=== PATIENT | male | born 1975 | race African-American/Black ===

== ENCOUNTER 2017-02-09 03:11 | Observation (INO) | payer BC, OTHER ==
--- NOTE | ~2017-02-09 | HP ---
History And Physical [place] [address] [facility] [place]. [address] NAME: JEWELS MEDEL SR : 73 STATUS : ADM Jesse PAT#: [id number] AGE: 41 ADM/REG DATE : 02/09/17 MR#: [id number] REPORT SERV DATE: 02/09/17 DICTATED BY: COBY UREÑA DATE: 02/09/17 REPORT STATUS : Draft TRANSCRIBED BY: MODMoi DATE: 02/09/17 DATE OF ADMISSION: 02/09/2017 CHIEF COMPLAINT: Chest pain. HISTORY OF PRESENT ILLNESS: This is a 41-year-old male with no prior history of coronary artery disease, who states onset of chest pain at around 9 p.m. while at rest last evening. He states that it is in the left chest and midsternal, 10/10 in severity, described as "squeezing and sharp." He took an 81 mg aspirin and checked his blood pressure which was okay. The chest pain persisted, so he came to our emergency department for further evaluation around 1 o'clock in the morning. He was given some IV fentanyl as well as aspirin and IV Zofran and admitted to our chest pain observation unit. He states that IV fentanyl seemed to help the chest pain, but then he has had briefer sharp pains through the night. While examining him, he is observed to have some of these chest pains that last seconds to a few minutes. There was no response to sublingual nitroglycerin given at bedside. The patient has a history of several cardiac workups in the past including a nuclear stress test and echocardiogram here at [facility] last April. Vasodilator nuclear stress test was low risk and echocardiogram indicated perhaps some mild LVH with normal EF and some mild diastolic dysfunction. The patient has history of cardiac catheterizations twice in the past, one at age 24 and then one several years ago at [facility] which were reportedly normal. When he was seen last April, he was noncompliant with his blood pressure medications, but he has since then been compliance and his blood pressure is currently controlled. He is also trying to stop smoking. The patient is on disability secondary to chronic pain and reflex sympathetic dystrophy, but he does remain active with housework and some walking. He denies any recent exertional chest pains. At times, he admits to dyspnea on exertion but no significant shortness of breath currently. No recent fever, cough, or chills. PAST MEDICAL HISTORY: 1. Long-standing hypertension since his 20s. Compliant with medications. Evidence of mild LVH on echocardiogram as well as mild diastolic dysfunction in April of 2016. 2. History of prior cardiac catheterizations at age 24 and again in 2010, which were reportedly normal. Last nuclear stress test 04/2016, which was low risk. 3. Obstructive sleep apnea, compliant with CPAP therapy. 4. History of left great toe fracture in 2006. 5. Left forearm fracture with ORIF, 07/27/2011. 6. Reflex sympathetic dystrophy with spinal cord stimulator to the low back. 7. Chronic pain and disability secondary to RSD. 8. History of tonsillectomy as a child. 9. Tobacco use. HOME MEDICATIONS: Amitriptyline 25 mg 3-4 tabs at bedtime, Coreg 25 b.i.d., Neurontin 800 q.6 hours, Adalat 90 mg daily, oxycodone 10/325 every 6 p.r.n., Maxzide 37.5/25 tab daily. History And Physical [address] [address] NAME: JEWELS MEDEL SR : 73 STATUS : ADM Jesse PAT#: [id number] AGE: 41 ADM/REG DATE : 02/09/17 MR#: [id number] REPORT SERV DATE: 02/09/17 DICTATED BY: COBY UREÑA DATE: 02/09/17 REPORT STATUS : Draft TRANSCRIBED BY: CAMDEN DATE: 02/09/17 ALLERGIES: LISINOPRIL CAUSES COUGH, PENICILLIN CAUSES ITCHING AND VOMITING. SOCIAL HISTORY: The patient is . at bedside. He is on disability. He drinks a couple glasses of wine per week. He has not smoked for a week now, but has been smoking since he was 13. Denies illicit drug use. FAMILY HISTORY: Mother at age 33 of a myocardial infarction. REVIEW OF SYSTEMS: Negative except as indicated above. PHYSICAL EXAMINATION: VITAL SIGNS: Blood pressure 116/63, heart rate 60, temperature 98.0, pulse oximetry 95% on room air. BMI 30.9. GENERAL: Well developed, well nourished, in no acute distress. HEENT: Anicteric. Normal EOM. Head normocephalic. PERRLA, no xanthelasma. NECK: Supple. No JVD. Carotids normal without bruits. LUNGS: Clear to auscultation bilaterally anterior and posterior. Respirations even and unlabored. CARDIAC: S1, S2 regular rate and rhythm. No murmurs, rubs, or gallops. No chest wall tenderness. ABDOMEN: Normal bowel sounds. Soft and nontender to palpation. No masses or organomegaly. EXTREMITIES: No peripheral edema. DP/PT and radial pulses palpable bilaterally. No clubbing or cyanosis. SKIN: Warm and dry. Normal turgor. No pallor or cyanosis. MUSCULOSKELETAL: Moving all extremities x4. Normal muscle strength. NEURO/PSYCH: Alert and oriented with appropriate affect. LABORATORY DATA: White blood count 10.5, hemoglobin 16.3, hematocrit 46.3. Sodium 141, potassium 3.6, BUN 15, creatinine 1.4. Troponin less than 0.02 x2. Chest x-ray showed no acute cardiopulmonary abnormalities. EKGs interpreted by myself indicate normal sinus rhythm with early repolarization changes to leads V2 and V3 with inferolateral T-wave inversions. These are unchanged when compared to EKG from 07/12/2016. ASSESSMENT/PLAN: 1. Midsternal chest pain in this 41-year-old male with cardiovascular risk factors of hypertension, tobacco use, and family history for premature cardiovascular disease and . He has been observed overnight in the chest pain observation unit and is negative for acute coronary syndrome. Chest pains are atypical and that they last only for seconds to a minute and are not related to exertion. Last nuclear stress test was in April of 2016. Recommend proceeding with another noninvasive nuclear stress test today given the patient's persistent chest pains as well as risk factors. If stress testing is low risk, we will plan to send home today with close followup with his primary care physician. 2. Hypertension. The patient now compliant with medications and blood pressure controlled. We will continue home medicines while he is here. History And Physical [address] [address] NAME: JEWELS MEDEL : 73 STATUS : ADM Jesse PAT#: [id number] AGE: 41 ADM/REG DATE : 02/09/17 MR#: [id number] REPORT SERV DATE: 02/09/17 DICTATED BY: COBY UREÑA DATE: 02/09/17 REPORT STATUS : Draft TRANSCRIBED BY: CAMDEN DATE: 02/09/17 3. History of abnormal EKG which is unchanged. 4. Tobacco abuse. Congratulated the patient on attempts to cessation. 5. Chronic pain with history of reflux sympathetic dystrophy. Continue home medications which include Neurontin and p.r.n. Percocet. RAZ/CAMDEN Coby Ureña NP / [id number] CC: Iona Marino, MSN, MRI TECH-BC Sierra Roger
[2017-02-09 02:20] LABS: BASOPHILS 0.8 %; BASOPHILS ABSOLUTE 0.08 10/3/uL (0.0-0.16); EOSINOPHILS 2.2 %; EOSINOPHILS ABSOLUTE 0.23 10/3/uL (0.0-0.53); HEMATOCRIT 46.3 % (40.0-51.0); HEMOGLOBIN 16.3 g/dL (13.6-17.8); IMMATURE GRANULOCYTES 0.3 %; IMMATURE GRANULOCYTES ABSOLUTE 0.03 10/3/uL (0.0-0.11); LYMPHOCYTES 41.7 %; LYMPHOCYTES ABSOLUTE 4.36 10/3/uL (0.67-4.30); MEAN CORPUS HGB CONC 35.2 g/dL (32.0-36.0); MEAN CORPUSCULAR HEMOGLOB 30.4 pg (26.0-34.0); MEAN PLATELET VOLUME 9.9 fL (9.2-13.0); MONOCYTES 7.9 %; MONOCYTES ABSOLUTE 0.83 10/3/uL (0.21-1.20); NEUTROPHILS 47.1 %; NEUTROPHILS ABSOLUTE 4.92 10/3/uL (2.02-8.40); PLATELET COUNT 311 10/3/uL (150-400); RED CELL COUNT 5.37 10/6/uL (4.7-6.1)
[2017-02-09 02:21] LABS: ER CBC TAT 0 Hrs 08 Mins; MANUAL DIFF NO %; MEAN CORPUSCULAR VOLUME 86.2 fL (80-100); WHITE BLOOD CELLS 10.5 10/3/uL (4.5-10.5)
[2017-02-09 02:28] LABS: INTERNATIONAL NORMAL RATI 0.9 UNITS (-); PARTIAL THROMBO TIME 28.5 SEC (22.5-37.2); PROTIME (NOT ORD) 12.1 SEC (12.0-14.5)
[2017-02-09 02:38] LABS: CALCIUM, SERUM 8.6 MG/DL (8.5-10.4); CHEST PAIN PROFILE TAT 0 Hrs 25 Mins; CHLORIDE, SERUM 105 MMOL/L (96-112); CREATININE 1.44 MG/DL (0.70-1.30); GFR AFRICAN AMERICAN 69 ML/MIN (>=60); GFR NON AFRICAN AMERICAN 59 ML/MIN (>=60); POTASSIUM, SERUM 3.6 MMOL/L (3.5-5.3); SODIUM, SERUM 141 MMOL/L (135-148); TROPONIN I <0.02 NG/ML (<0.05)
[2017-02-09 02:40] LABS: BUN (BLOOD UREA NITROGEN) 15 MG/DL (6-23); CO2 (CARBON DIOXIDE) 26 MMOL/L (24-34); GLUCOSE, SERUM 115 MG/DL (60-99)
[~2017-02-09 03:11] MED LIST: AMIT25 PO; ENDOCET1 TA3 PO; MAX25 PO; NEUR800 PO; NORV5 PO; ZESTORETIC PO
[2017-02-09] MEDS ORDERED: AMIT25 PO (03:51)
[2017-02-09] MEDS ORDERED: COREG25 PO (03:51)
[2017-02-09] MEDS ORDERED: PERCOCET 10/3251 TAB PO (03:52)
[2017-02-09] MEDS ORDERED: MAX25 PO (03:52)
[2017-02-09] MEDS ORDERED: ADALAT CC90 MG PO (03:52)
[2017-02-09] MEDS ORDERED: NEUR800 PO (03:53)
== END 2017-02-09 16:13 | disposition home or self-care (01) ==
LOC: ER 03:11 → CDU1 03:16
PROVIDERS: Emergency Medicine
DX: R07.89 Other chest pain (principal); I10 Essential (primary) hypertension; R94.31 Abnormal electrocardiogram [ECG] [EKG]; Z72.0 Tobacco use; G89.29 Other chronic pain; G90.50 Complex regional pain syndrome I, unspecified; G47.33 Obstructive sleep apnea (adult) (pediatric); Z95.5 Presence of coronary angioplasty implant and graft; Z98.890 Other specified postprocedural states; Z90.89 Acquired absence of other organs; Z88.0 Allergy status to penicillin; Z88.8 Allergy status to other drugs, medicaments and biological substances
CPT/HCPCS: 71020; 78452; 80048; 83735; 84484; 85025; 85610; 85730; 93005; 93017; 96374; 96375; 99285; A9270-GY; A9502; G0378; J2405; J2785; J3010